=== PATIENT | male | born 1945 | race Caucasian/White ===

== ENCOUNTER 2018-03-19 10:33 | Observation (INO) | payer OTHER ==
[~2018-03-19] VITALS: Ht 182.9 cm; Wt 88.5 kg
[2018-03-19 10:38] VITALS: BP 160/73; PULSE 67; RESP 20; O2SAT 94
[2018-03-19] MEDS ORDERED: SODIUM CHLOR 0.9% 1000 ML INJ 1,000 ML IV ONE (10:45)
--- NOTE | 2018-03-19 10:51 | RADRPT ---
EXAM DATE: 03/19/2018 10:45 AM EDT AGE/SEX: 73 years / Male INDICATIONS: Difficulty speaking, history of brain tumor removed 4 months ago. CLINICAL DATA: This is the patient's initial encounter. Patient reports that signs and symptoms have been present for 1 day and indicates a pain score of 0/10. MEDICAL/SURGICAL HISTORY: None. Craniotomy. RADIATION DOSE: 66.34 CTDI (mGy) COMPARISON: No prior exams available for comparison. TECHNIQUE: CT of the head without contrast. Using automated exposure control and adjustment of the mA and/or kV according to patient size, radiation dose was kept as low as reasonably achievable to ob tain optimal diagnostic quality images. DICOM format image data is available electronically for revi ew and comparison. FINDINGS: Cerebrum: The ventricles are normal for age. Mild bilateral cortical atrophy characteristic for peggy ent's age. Chronic bilateral white matter changes. No evidence of midline shift, mass lesion, hemorrh age or acute infarction. No extraaxial fluid collections are seen. Postsurgical changes with some pa renchymal calcifications are noted along the posterior mid to upper left parietal lobe consistent wit h patient's prior history of brain surgery. Posterior Fossa: The cerebellum and brainstem are intact. The 4th ventricle is midline. The cerebe llopontine angle is unremarkable. Extracranial: The visualized portion of the orbits is intact. Skull: Craniotomy flap in good position along the posterior left parietal lobe. The calvarium is yasmeen ssly intact. CONCLUSION: 1. No focal or acute intracranial hemorrhage. 2. Status post evidence of previous brain surgery with postsurgical changes involving the posterior mid to upper left parietal lobe. 3. Bilateral cortical atrophy and white matter changes characteristic for patient's age. Electronically signed by: Eric Delgadillo MD 03/19/2018 10:50 AM EDT
[2018-03-19 10:56] VITALS: RESP 20; O2SAT 93; O2SAT 94
[2018-03-19 11:01] VITALS: BP 124/70; PULSE 57; RESP 20; O2SAT 98
[2018-03-19 11:04] LABS: AUTOMATED NEUTROPHIL # 2.7 TH/MM3 (1.8-7.7); BASOPHIL # 0.1 TH/MM3 (0-0.2); BASOPHIL % 1.1 % (0.0-2.0); EOSINOPHIL # 0.4 TH/MM3 (0-0.4); EOSINOPHIL % 7.1 % (0.0-4.0); HEMATOCRIT 43.1 % (39.0-51.0); HEMOGLOBIN 14.1 GM/DL (13.0-17.0); LYMPH % 33.3 % (9.0-44.0); LYMPHOCYTE # 1.9 TH/MM3 (1.0-4.8); MEAN CELL VOLUME 89.7 FL (80.0-100.0); MEAN CORPUSCULAR HEMOGLOBIN 29.3 PG (27.0-34.0); MEAN CORPUSCULAR HGB CONC 32.7 % (32.0-36.0); MEAN PLATELET VOLUME 7.6 FL (7.0-11.0); MONO % 10.2 % (0.0-8.0); MONOCYTE # 0.6 TH/MM3 (0-0.9); NEUT % 48.3 % (16.0-70.0); PLATELET COUNT 227 TH/MM3 (150-450); RED BLOOD COUNT 4.81 MIL/MM3 (4.50-5.90); RED CELL DISTRIBUTION WIDTH 15.3 % (11.6-17.2); WHITE BLOOD COUNT 5.6 TH/MM3 (4.0-11.0)
--- NOTE | 2018-03-19 11:07 | PD ---
HPI Chief Complaint: Altered mental status Time Seen by Provider: 10:36 Travel History International Travel<30 days: No Contact w/Intl Traveler<30days: No Traveled to known affect area: No History of Present Illness HPI 73-year-old male presents by ambulance as a stroke alert. He had about a 15 minute onset of speech abnormality. Patient here is having no speech issues and states that he is feeling better. He states he does recall having issues earlier with his speech. He has never been to our hospital before and is a poor historian and is by himself so ambulance helps supplement history. PFSH Past Medical History Cardiovascular Problems: Yes Diminished Hearing: No Hypertension: Yes Neurologic: Yes (brain tumor) Tetanus Vaccination: > 5 Years Influenza Vaccination: Yes Past Surgical History Neurologic Surgery: Yes (brain tumor sx) Social History Alcohol Use: No Tobacco Use: No Substance Use: No Allergies-Medications (Allergen,Severity, Reaction): Coded Allergies: No Known Allergies (Verified Allergy, Unknown, 03/19/18) Reported Meds & Prescriptions Reported Meds & Active Scripts Active Reported Megestrol Liq (Megestrol Acetate) 40 Mg/Ml Susp 400 Mg PO DAILY Meclizine (Meclizine HCl) 12.5 Mg Tab 12.5 Mg PO BID PRN Metoprolol Tartrate 25 Mg Tab 25 Mg PO Q8HR Cymbalta DR (Duloxetine HCl) 60 Mg Capdr 60 Mg PO DAILY Review of Systems ROS Limitations: Poor Historian Physical Exam Exam Limitations: Poor Historian Narrative GENERAL: 73-year-old male in no apparent distress SKIN: Focused skin assessment warm/dry. HEAD: Atraumatic. Normocephalic. EYES: Pupils equal and round. No scleral icterus. No injection or drainage. ENT: No nasal bleeding or discharge. Mucous membranes pink and moist. NECK: Trachea midline. CARDIOVASCULAR: Regular rate and rhythm. No murmur appreciated. RESPIRATORY: No accessory muscle use. Clear to auscultation. Breath sounds equal bilaterally. GASTROINTESTINAL: Abdomen soft, non-tender, nondistended. MUSCULOSKELETAL: No obvious deformities. No clubbing. No cyanosis. NEUROLOGICAL: Awake and alert. No obvious cranial nerve deficits. Motor grossly within normal limits. Normal speech Data Data Last Documented VS Vital Signs Date Time Temp Pulse Resp B/P (MAP) Pulse Ox O2 Delivery O2 Flow Rate FiO2 03/19/18 11:01 57 20 124/70 (88) 98 Nasal Cannula 2.00 Orders Orders Magnesium (Mg) (03/19/18 10:36) Phosphorus (Po4) (03/19/18 10:36) Complete Blood Count With Diff (03/19/18 10:36) Comprehensive Metabolic Panel (03/19/18 10:36) Ckmb (Isoenzyme) Profile (03/19/18 10:36) Troponin I (03/19/18 10:36) Urinalysis - C+S If Indicated (03/19/18 10:36) Act Partial Throm Time (Ptt) (03/19/18 10:36) Prothrombin Time / Inr (Pt) (03/19/18 10:36) Ct Brain W/O Iv Contrast(Rout) (03/19/18 ) Chest, Single Ap (03/19/18 ) Electrocardiogram (03/19/18 ) Iv Access Insert/Monitor (03/19/18 10:36) Ecg Monitoring (03/19/18 10:36) Oximetry (03/19/18 10:36) Type And Screen (03/19/18 10:36) Activity Bed Rest (03/19/18 ) Nursing Bedside Swallow Assess .ONCE (03/19/18 10:45) Sodium Chlor 0.9% 1000 Ml Inj (Ns 1000 M (03/19/18 10:45) Aspirin (Aspirin) (03/19/18 11:30) Consult Neurology (03/19/18 ) (Hub Use Only)Inp Phy Cons/Ref (03/19/18 ) Admit Order (Ed Use Only) (03/19/18 12:38) Labs Laboratory Tests Test 03/19/18 10:50 White Blood Count 5.6 TH/MM3 Red Blood Count 4.81 MIL/MM3 Hemoglobin 14.1 GM/DL Hematocrit 43.1 % Mean Corpuscular Volume 89.7 FL Mean Corpuscular Hemoglobin 29.3 PG Mean Corpuscular Hemoglobin Concent 32.7 % Red Cell Distribution Width 15.3 % Platelet Count 227 TH/MM3 Mean Platelet Volume 7.6 FL Neutrophils (%) (Auto) 48.3 % Lymphocytes (%) (Auto) 33.3 % Monocytes (%) (Auto) 10.2 % Eosinophils (%) (Auto) 7.1 % Basophils (%) (Auto) 1.1 % Neutrophils # (Auto) 2.7 TH/MM3 Lymphocytes # (Auto) 1.9 TH/MM3 Monocytes # (Auto) 0.6 TH/MM3 Eosinophils # (Auto) 0.4 TH/MM3 Basophils # (Auto) 0.1 TH/MM3 CBC Comment DIFF FINAL Differential Comment Prothrombin Time 10.5 SEC Prothromb Time International Ratio 1.0 RATIO Activated Partial Thromboplast Time 25.3 SEC Blood Urea Nitrogen 14 MG/DL Creatinine 0.85 MG/DL Random Glucose 91 MG/DL Total Protein 6.3 GM/DL Albumin 3.2 GM/DL Calcium Level 8.5 MG/DL Phosphorus Level 3.0 MG/DL Magnesium Level 2.1 MG/DL Alkaline Phosphatase 101 U/L Aspartate Amino Transf (AST/SGOT) 13 U/L Alanine Aminotransferase (ALT/SGPT) 12 U/L Total Bilirubin 0.5 MG/DL Sodium Level 144 MEQ/L Potassium Level 4.0 MEQ/L Chloride Level 112 MEQ/L Carbon Dioxide Level 21.3 MEQ/L Anion Gap 11 MEQ/L Estimat Glomerular Filtration Rate 88 ML/MIN Total Creatine Kinase 72 U/L Troponin I LESS THAN 0.02 NG/ML MDM Medical Decision Making Medical Screen Exam Complete: Yes Emergency Medical Condition: Yes Medical Record Reviewed: Yes (No records here) Interpretation(s) Last [address] 03/19/18 0000 Signed Impressions: CONCLUSION: 1. No focal or acute intracranial hemorrhage. 2. Status post evidence of previous brain surgery with postsurgical changes in volving the posterior mid to upper left parietal lobe. 3. Bilateral cortical atrophy and white matter changes characteristic for peggy ent's age. CBC & BMP Diagram 03/19/18 10:50 CBC & BMP Diagram 03/19/18 10:50 Total Protein 6.3 L, Albumin 3.2 L, Calcium Level 8.5, Phosphorus Level 3.0, Magnesium Level 2.1, Alkaline Phosphatase 101, Aspartate Amino Transf (AST/SGOT ) 13 L, Alanine Aminotransferase (ALT/SGPT) 12, Total Bilirubin 0.5 Differential Diagnosis Bleed, seizure, electrolyte, TIA Narrative Course Will check blood work, imaging and discuss with neurology ed workup no emergent process on labs, ct head, will admit for further care, at bedside and updated history Physician Communication Physician Communication dr gamble agrees to hold stroke alert at this time given no active symptoms. He request aspirin, IV fluids and will monitor dr garcia agrees to admit Diagnosis Primary Impression: Altered mental status Qualified Codes: R41.82 - Altered mental status, unspecified Admitting Information Admitting Physician Requests: Observation Jessica Calixto MD Mar 19, 2018 11:07
[2018-03-19 11:14] LABS: PROTHROMBIN TIME - PATIENT 10.5 SEC (9.8-11.6)
[2018-03-19 11:29] LABS: ALBUMIN 3.2 GM/DL (3.4-5.0); ALT (GPT) 12 U/L (12-78); AST (GOT) 13 U/L (15-37); BICARBONATE 21.3 MEQ/L (21.0-32.0); BLOOD UREA NITROGEN 14 MG/DL (7-18); CALCIUM 8.5 MG/DL (8.5-10.1); CHLORIDE 112 MEQ/L (98-107); CREATININE 0.85 MG/DL (0.60-1.30); GLOMERULAR FILTRATION RATE 88 ML/MIN (>89); GLUCOSE,RANDOM 91 MG/DL (74-106); MAGNESIUM 2.1 MG/DL (1.5-2.5); SODIUM (NA) 144 MEQ/L (136-145)
[2018-03-19] MEDS ORDERED: ASPIRIN 325 MG TAB PO ONE (11:30)
[2018-03-19 11:33] LABS: ALKALINE PHOSPHATASE 101 U/L (45-117); TOTAL BILIRUBIN ADULT 0.5 MG/DL (0.2-1.0); TOTAL PROTEIN 6.3 GM/DL (6.4-8.2); TROPONIN I LESS THAN 0.02 NG/ML (0.02-0.05)
--- NOTE | 2018-03-19 11:43 | RADRPT ---
EXAM DATE: 03/19/2018 11:19 AM EDT AGE/SEX: 73 years / Male INDICATIONS: Possible stroke, slurred speech. CLINICAL DATA: This is the patient's initial encounter. Patient reports that signs and symptoms have been present for 1 day and indicates a pain score of 0/10. MEDICAL/SURGICAL HISTORY: . brain tumor 10/2017, right side weakness . brain tumor surgery 10/20 17 COMPARISON: No prior exams available for comparison. FINDINGS: A single AP view of the chest demonstrates the lungs to be symmetrically aerated without evidence of mass, infiltrate or effusion. The cardiomediastinal contours are unremarkable. Osseous structures a re intact. CONCLUSION: No acute intrathoracic disease. Electronically signed by: Eric Delgadillo MD 03/19/2018 11:42 AM EDT
[2018-03-19] MEDS ORDERED: MECL12.574 PO (11:49)
[2018-03-19] MEDS ORDERED: CYMB60CA PO (11:49)
[2018-03-19] MEDS ORDERED: MEGE40SU PO (11:49)
[2018-03-19] MEDS ORDERED: METO25TA3 PO (11:49)
[2018-03-19] MEDS ORDERED: DEXTROSE 50% IN WATER 50 ML VIAL(D50) IV PUSH PRN (12:45)
[2018-03-19] MEDS ORDERED: GLUCAGON 1 MG/ML VIAL OTHER PRN (12:45)
[2018-03-19] MEDS ORDERED: SODIUM CHLORIDE 0.9% FLUSH 10 ML FLUSH IV FLUSH PRN (12:45)
[2018-03-19 13:00] VITALS: BP 146/70; PULSE 56; RESP 17; TEMP 97.8; O2SAT 98
[2018-03-19 13:52] VITALS: BP 136/70; TEMP 97.8
[2018-03-19] MEDS ORDERED: LORazepam 2 MG/ML VIAL IV PUSH ONE (14:00)
[2018-03-19] MEDS: METOPROLOL TARTRATE 25 MG TAB PO SCH ×2 (14:00→22:00)
[2018-03-19] MEDS: HEPARIN SODIUM - SQ 10,000 UNITS/ML VIAL SQ SCH (14:42)
--- NOTE | 2018-03-19 14:42 | HHI.HP ---
HPI Service [facility] Primary Care Physician Unknown Admission Diagnosis altered mental status, expressive aphasia episode Diagnoses: Travel History International Travel<30 Days: No Contact w/Intl Traveler <30 Da: No Traveled to Known Affected Are: No History of Present Illness 73-year-old male with a history of left-sided brain mass removed 1 year ago, depression, hypertension who presents with acute onset dysarthria this morning around 9 AM. This resolves shortly thereafter. Patient denies any new focal signs or symptoms during this time apart from difficulty speaking. Patient does have residual right-sided weakness which is unchanged.. Patient says he is currently feeling back to normal. Denies any chest pain, shortness of breath, nausea, vomiting. Denies any recent fevers, chills, dysuria, diarrhea, constipation. Review of Systems Except as stated in HPI: all other systems reviewed are Neg Past Family Social History Past Medical History Hypertension Depression not on medication. Previous brain tumor which was removed 1 year ago. Residual right-sided weakness Chronic bilateral lower extremity neuropathy. Past Surgical History Brain tumor removed 1 year ago. Tonsillectomy Reported Medications Reported Meds & Active Scripts Active Reported Megestrol Liq (Megestrol Acetate) 40 Mg/Ml Susp 400 Mg PO DAILY Meclizine (Meclizine HCl) 12.5 Mg Tab 12.5 Mg PO BID PRN Metoprolol Tartrate 25 Mg Tab 25 Mg PO Q8HR Cymbalta DR (Duloxetine HCl) 60 Mg Capdr 60 Mg PO DAILY Allergies: Coded Allergies: No Known Allergies (Verified Allergy, Unknown, 03/19/18) Family History Reviewed with patient and found to be currently noncontributory Social History Non-smoker. Nondrinker. Denies illicit drugs. Physical Exam Vital Signs Vital Signs Date Time Temp Pulse Resp B/P (MAP) Pulse Ox O2 Delivery O2 Flow Rate FiO2 03/19/18 13:52 97.8 53 16 136/70 (92) 99 03/19/18 13:00 97.8 56 17 146/70 (95) 98 Nasal Cannula 2.00 03/19/18 11:01 57 20 124/70 (88) 98 Nasal Cannula 2.00 03/19/18 10:56 20 94 Nasal Cannula 2.00 03/19/18 10:56 56 18 98 Nasal Cannula 2.00 03/19/18 10:38 67 20 160/73 (102) 94 Physical Exam GENERAL: This is a well-nourished, well-developed patient, in no apparent distress. Alert, oriented 3. SKIN: No rashes, ecchymoses or lesions. Cool and dry. HEAD: Atraumatic. Normocephalic. No temporal or scalp tenderness. EYES: Pupils equal round and reactive. Extraocular motions intact. No scleral icterus. No injection or drainage. ENT: Nose without bleeding, purulent drainage or septal hematoma. Throat without erythema, tonsillar hypertrophy or exudate. Uvula midline. Airway patent. NECK: Trachea midline. No JVD or lymphadenopathy. Supple, nontender, no meningeal signs. CARDIOVASCULAR: Regular rate and rhythm without murmurs, gallops, or rubs. RESPIRATORY: Clear to auscultation. Breath sounds equal bilaterally. No wheezes , rales, or rhonchi. GASTROINTESTINAL: Abdomen soft, non-tender, nondistended. No hepato-splenomegaly , or palpable masses. No guarding. MUSCULOSKELETAL: Extremities without clubbing, cyanosis, or edema. No joint tenderness, effusion, or edema noted. No calf tenderness. Negative Homans sign bilaterally. NEUROLOGICAL: Awake and alert. Cranial nerves II through XII intact. Motor and sensory grossly within normal limits. Some slight weakness on the right, however overall strength is 5 out of 5 bilateral upper and lower extremities. Normal speech. Laboratory Laboratory Tests Test 03/19/18 10:50 White Blood Count 5.6 Red Blood Count 4.81 Hemoglobin 14.1 Hematocrit 43.1 Mean Corpuscular Volume 89.7 Mean Corpuscular Hemoglobin 29.3 Mean Corpuscular Hemoglobin Concent 32.7 Red Cell Distribution Width 15.3 Platelet Count 227 Mean Platelet Volume 7.6 Neutrophils (%) (Auto) 48.3 Lymphocytes (%) (Auto) 33.3 Monocytes (%) (Auto) 10.2 Eosinophils (%) (Auto) 7.1 Basophils (%) (Auto) 1.1 Neutrophils # (Auto) 2.7 Lymphocytes # (Auto) 1.9 Monocytes # (Auto) 0.6 Eosinophils # (Auto) 0.4 Basophils # (Auto) 0.1 CBC Comment DIFF FINAL Differential Comment Prothrombin Time 10.5 Prothromb Time International Ratio 1.0 Activated Partial Thromboplast Time 25.3 Blood Urea Nitrogen 14 Creatinine 0.85 Random Glucose 91 Total Protein 6.3 Albumin 3.2 Calcium Level 8.5 Phosphorus Level 3.0 Magnesium Level 2.1 Alkaline Phosphatase 101 Aspartate Amino Transf (AST/SGOT) 13 Alanine Aminotransferase (ALT/SGPT) 12 Total Bilirubin 0.5 Sodium Level 144 Potassium Level 4.0 Chloride Level 112 Carbon Dioxide Level 21.3 Anion Gap 11 Estimat Glomerular Filtration Rate 88 Total Creatine Kinase 72 Troponin I LESS THAN 0.02 Result Diagram: 03/19/18 1050 03/19/18 1050 Imaging Last Impressions Head CT 03/19/18 0000 Signed Impressions: CONCLUSION: 1. No focal or acute intracranial hemorrhage. 2. Status post evidence of previous brain surgery with postsurgical changes in volving the posterior mid to upper left parietal lobe. 3. Bilateral cortical atrophy and white matter changes characteristic for peggy ent's age. Chest X-Ray 03/19/18 0000 Signed Impressions: CONCLUSION: No acute intrathoracic disease. Caprini VTE Risk Assessment Caprini VTE Risk Assessment: Mod/High Risk (score >= 2) Caprini Risk Assessment Model Point Value = 1 Point Value = 2 Point Value = 3 Point Value = 5 Age 41-60 Minor surgery BMI > 25 kg/m2 Swollen legs Varicose veins or History of unexplained or recurrent spontaneous Oral contraceptives or hormone replacement Sepsis (< 1 month) Serious lung disease, including pneumonia (< 1 month) Abnormal pulmonary function Acute myocardial infarction Congestive heart failure (< 1 month) History of inflammatory bowel disease Medical patient at bed rest Age 61-74 Arthroscopic surgery Major open surgery (> 45 min) Laparoscopic surgery (> 45 min) Malignancy Confined to bed (> 72 hours) Immobilizing plaster cast Central venous access Age >= 75 History of VTE Family history of VTE Factor V Leiden Prothrombin [id number] Lupus anticoagulant Anticardiolipin antibodies Elevated serum homocysteine Heparin-induced thrombocytopenia Other congenital or acquired thrombophilia Stroke (< 1 month) Elective arthroplasty Hip, pelvis, or leg fracture Acute spinal cord injury (< 1 month) Prophylaxis Regimen Total Risk Factor Score Risk Level Prophylaxis Regimen 0-1 Low Early ambulation 2 Moderate Order ONE of the following: *Sequential Compression Device (SCD) *Heparin 5000 units SQ BID 3-4 Higher Order ONE of the following medications: *Heparin 5000 units SQ TID *Enoxaparin/Lovenox 40 mg SQ daily (WT < 150 kg, CrCl > 30 mL/min) *Enoxaparin/Lovenox 30 mg SQ daily (WT < 150 kg, CrCl > 10-29 mL/min) *Enoxaparin/Lovenox 30 mg SQ BID (WT < 150 kg, CrCl > 30 mL/min) AND/OR *Sequential Compression Device (SCD) 5 or more Highest Order ONE of the following medications: *Heparin 5000 units SQ TID (Preferred with Epidurals) *Enoxaparin/Lovenox 40 mg SQ daily (WT < 150 kg, CrCl > 30 mL/min) *Enoxaparin/Lovenox 30 mg SQ daily (WT < 150 kg, CrCl > 10-29 mL/min) *Enoxaparin/Lovenox 30 mg SQ BID (WT < 150 kg, CrCl > 30 mL/min) AND *Sequential Compression Device (SCD) Assessment and Plan Assessment and Plan //suspected TIA //Possible seizure //History of left brain mass removed with residual right-sided weakness. -CT brain with no acute findings. = Further imaging ordered and pending. Echocardiogram ordered and pending. Ultrasound carotids. //Right lower extremity swelling. Acute on chronic //Possible bilateral lower extremity venous insufficiency -We will check ultrasound. Patient may need ALIYAH hose. //Hypertension. Chronic. Continue home medications. //Depression. Chronic. No suicidal ideations. Not on medication. //Bilateral lower extremity neuropathy. Chronic. On medication at home. to bring in medication list. //Malnutrition. Chronic. Poor appetite. On Megace. Continue. Discussed Condition With Patient, nurse, ED physician, at bedside Isma Whitehead MD Mar 19, 2018 14:42
--- NOTE | 2018-03-19 16:23 | PD.CONS ---
History of Present Illness Service Neurology Consult Requested By ER difficulty with speech Primary Care Physician Unknown History of Present Illness 73-year-old male with a history of left-sided brain mass removed 1 year ago, depression, hypertension who presents with acute onset dysarthria this morning around 9 AM. Symptoms resolved by time he came to the emergency department. A CAT scan did not show any acute lesion. MRI brain scan performed official report pending no acute stroke noted. Left high posterior parietal mass lesion/ scar tissue noted. Patient states he has had difficulty with speech ever since he had brain surgery. States he is in speech therapy this morning and is having more difficulty putting his words together. States his back to his new baseline. Denies any headache neck pain focal weakness visual loss or vertigo. No history of TIA or stroke. Not on any antiplatelets. States he had surgery done in [place]. Is followed by a neurologist in the outpatient setting. Review of Systems Except as stated in HPI: all other systems reviewed are Neg Past Family Social History Past Medical History Hypertension Depression Previous brain tumor resection over a year ago Chronic bilateral lower extremity neuropathy Past Surgical History Brain tumor resection left posterior hemisphere. Tonsillectomy Allergies: Coded Allergies: No Known Allergies (Verified Allergy, Unknown, 03/19/18) Family History Reviewed with patient and found to be currently noncontributory Social History Non-smoker. Nondrinker. Denies illicit drugs. Review of Systems All other ROS: ROS reviewed as documented in chart Past Family Social History Allergies: Coded Allergies: No Known Allergies (Verified Allergy, Unknown, 03/19/18) Active Ordered Medications Current Medications Medications (Trade) Dose Ordered Sig/Walter Route Start Time Stop Time Status Last Admin Sodium Chloride 1,000 ml @ 70 mls/hr [id number] ONCE IV 03/19/18 10:45 03/20/18 01:02 03/19/18 10:56 (NS Flush) 2 ml BID IV FLUSH 03/19/18 21:00 (NS Flush) 2 ml UNSCH PRN IV FLUSH 03/19/18 12:45 (Aspirin Chew) 81 mg DAILY PO 03/20/18 09:00 (NovoLOG SUPPLEMENTAL SCALE) 1 ACHS SQ 03/19/18 17:00 (D50w (Vial) Inj) 50 ml UNSCH PRN IV PUSH 03/19/18 12:45 (Glucagon Inj) 1 mg UNSCH PRN OTHER 03/19/18 12:45 (Heparin Inj) 5,000 units Q12H SQ 03/19/18 14:00 03/19/18 14:42 (Cymbalta Dr) 60 mg DAILY PO 03/20/18 09:00 (Megace Liq) 400 mg DAILY PO 03/20/18 09:00 (Lopressor) 25 mg Q8HR PO 03/19/18 14:00 Exam I&O / VS Vital Signs Date Time Temp Pulse Resp B/P (MAP) Pulse Ox O2 Delivery O2 Flow Rate FiO2 03/19/18 13:52 97.8 53 16 136/70 (92) 99 03/19/18 13:00 97.8 56 17 146/70 (95) 98 Nasal Cannula 2.00 03/19/18 11:01 57 20 124/70 (88) 98 Nasal Cannula 2.00 03/19/18 10:56 20 94 Nasal Cannula 2.00 03/19/18 10:56 56 18 98 Nasal Cannula 2.00 03/19/18 10:38 67 20 160/73 (102) 94 General: Alert and Oriented, No acute distress Eye: EOMI Respiratory: Non-labored respirations Neurologic: Alert Psychiatric: Cooperative, Appropriate mood & affect Exam Comments Awake alert mild disfluency oriented 3 some poor short-term memory recollection to some details and states need to talk to his who is not at bedside at present states it has been this way since his brain surgery. No temporal tenderness OU 3-2 mm extraocular once intact no facial asymmetry tongue midline strength 5 out of 5 upper lower limbs slightly reduced fine finger movements in the right hand. No dystaxia. Reduce pinprick stocking distribution in his legs. Reflexes 1+ symmetric plantarflex response no clonus elicited. Gait not assessed secondary fall risk. Review/Management Diagnosis/Plan: (1) Transient neurologic deficit ICD Codes: R29.818 - Other symptoms and signs involving the nervous system Status: Acute Plan: Etiology; TIA versus partial seizure secondary to brain tumor/scarring Acute on chronic disfluency with improvement over the course a day Recommendations Follow up official MRI report, MRA Carotid, echo Aspirin, Plavix We will also start Keppra for potential focal seizure in the area of encephalomalacia Fasting lipids EEG PT eval No driving (2) Brain tumor ICD Codes: D49.6 - Neoplasm of unspecified behavior of brain Status: Chronic Plan: Follows with his outpatient neurologist for this (3) Depression ICD Codes: F32.9 - Major depressive disorder, single episode, unspecified Status: Chronic Plan: Watch mood Has been on Cymbalta (4) HTN (hypertension) ICD Codes: I10 - Essential (primary) hypertension Status: Chronic Plan: Goal less than 120/80 Medical following Problem Qualifiers (1) HTN (hypertension): Qualified Codes: I10 - Essential (primary) hypertension Edgar Wu MD Mar 19, 2018 16:23
--- NOTE | 2018-03-19 16:26 | RADRPT ---
EXAM DATE: 03/19/2018 4:15 PM EDT AGE/SEX: 73 years / Male INDICATIONS: Stroke. Slurred speech for one day. CLINICAL DATA: This is the patient's initial encounter. Patient reports that signs and symptoms have been present for 1 day and indicates a pain score of 8/10. MEDICAL/SURGICAL HISTORY: Hypertension. . Brain sx. COMPARISON: [facility] – [place], [place], CT BRAIN W/O CONTRAST, 03/19/2018. . TECHNIQUE: Multiplanar, multisequence examination of the brain was performed without contrast. FINDINGS: Cerebrum: There is mild generalized atrophy with ventricular size within normal limits given the degr ee of atrophy. In the left parietal high convexity there is encephalomalacia with focal signal change corresponding with the calcification seen on CT. There is mild increased diffusion signal in this ar ea without associated decreased ADC signal. There is also focal susceptibility artifact in this area. No midline shift, mass lesion, hemorrhage or acute infarction. No extraaxial fluid collections are seen. The pituitary gland and suprasellar cistern are normal in configuration. White Matter: There is mild periventricular and subcortical white matter signal change. Posterior Fossa: The cerebellum and brainstem demonstrate no acute abnormality. The 4th ventricle is midline. The cerebellopontine angle is within normal limits. The cerebellar tonsils are normal in p osition. Diffusion Imaging: No areas of restricted diffusion are seen. Extracranial: The visualized sinuses are clear. There are postsurgical changes in the left parietal skull. CONCLUSION: 1. No acute finding is identified to explain the clinical symptoms. There are no findings to indicat e recent ischemia. 2. Postsurgical changes in the left parietal region with encephalomalacia. 3. Chronic findings include generalized atrophy and chronic periventricular white matter change ramon acteristic of chronic microvascular ischemia. Electronically signed by: Luis Rosales MD 03/19/2018 4:25 PM EDT
--- NOTE | 2018-03-19 16:41 | RADRPT ---
EXAM DATE: 03/19/2018 4:12 PM EDT AGE/SEX: 73 years / Male INDICATIONS: TIA. Slurred speech for one day. CLINICAL DATA: This is the patient's initial encounter. Patient reports that signs and symptoms have been present for 1 day and indicates a pain score of 7/10. MEDICAL/SURGICAL HISTORY: Hypertension. . Brain sx. [place] [facility] [place]/19/2018. . TECHNIQUE: 3D [id number] MRA was performed. Source images, multiplanar STS MIP, and 3D volum e MIP reconstructions were reviewed. FINDINGS: There is excellent visualization of the major intracranial arteries out to the second-order branch ve ssels. There is no evidence for vessel truncation or stenosis, and no evidence for vascular malforma tion. However, there appears to be a questionable 3 mm aneurysm involving the tip of the basilar little ry. There are bilateral patent posterior communicating arteries. CONCLUSION: 1. 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 If clinically indicated, [place] mm[place] a CTA of the brain for further evaluation. 2. Otherwise, the rest of the MRA of the brain is unremarkable. Electronically signed by: Eric Delgadillo MD 03/19/2018 4:39 PM EDT
[2018-03-19] MEDS: INSULIN ASPART SUPPLEMENTAL SCALE SQ SCH ×2 (17:00→21:00)
[2018-03-19 17:53] LABS: HEMOGLOBIN A1C 5.3 % (4.3-6.0)
[2018-03-19] MEDS: levETIRAcetam 500 MG TAB PO SCH (19:01)
[2018-03-19] MEDS: CLOPIDOGREL 75 MG TAB PO SCH (19:01)
[2018-03-19 20:48] VITALS: BP 120/70; PULSE 57; RESP 17; TEMP 97.2; O2SAT 97
[2018-03-19] MEDS: SODIUM CHLORIDE 0.9% FLUSH 10 ML FLUSH IV FLUSH SCH (21:00)
--- NOTE | 2018-03-19 22:39 | RADRPT ---
EXAM DATE: 03/19/2018 10:34 PM EDT AGE/SEX: 73 years / Male INDICATIONS: Edema. CLINICAL DATA: This is the patient's initial encounter. Patient reports that signs and symptoms have been present for 1 day and indicates a pain score of Nonresponsive. MEDICAL/SURGICAL HISTORY: Hypertension. . Brain tumor removed 1 year ago. COMPARISON: No prior exams available for comparison. TECHNIQUE: Venous ultrasound of both lower extremities was performed from the inguinal ligament to t he proximal calf. Real-time, color Doppler and spectral tracing, compression and augmentation techni ques were used. FINDINGS: Right Leg: Normal compression of the deep venous system from the inguinal region to the proximal miguelina f. No echogenic clot is seen. Normal response of the venous system to augmentation and respiration. Left Leg: Normal compression of the deep venous system from the inguinal region to the proximal calf . No echogenic clot is seen. Normal response of the venous system to augmentation and respiration. Other: None. CONCLUSION: 1. No sonographic evidence for lower extremity DVT. Electronically signed by: Percy Jhaveri MD 03/19/2018 10:38 PM EDT
--- NOTE | 2018-03-19 22:40 | RADRPT ---
EXAM DATE: 03/19/2018 10:30 PM EDT AGE/SEX: 73 years / Male INDICATIONS: Slurred speech. CLINICAL DATA: This is the patient's initial encounter. Patient reports that signs and symptoms have been present for 1 day and indicates a pain score of Nonresponsive. MEDICAL/SURGICAL HISTORY: Hypertension. . Neurologic brain tumor surgery. COMPARISON: No prior exams available for comparison. VELOCITY PARAMETERS: ICA/CCA Ratio: Right 0.96 , Left 0.94 ICA: Right 70 cm/sec, Left 95 cm/sec CCA: Right 75 cm/sec, Left 101 cm/sec ECA: Right 63 cm/sec, Left 77 cm/sec Vertebral: Right 24 cm/sec antegrade, Left 38 cm/sec antegrade FINDINGS: Right Carotid: No significant stenosis is visualized. The waveforms are within normal limits. Left Carotid: No significant stenosis is visualized. The waveforms are within normal limits. Other: None. CONCLUSION: 1. Right Internal Carotid Artery: No significant stenosis or atherosclerotic plaque is visualized. 2. Left Internal Carotid Artery: No significant stenosis or atherosclerotic plaque is visualized. Electronically signed by: Percy Jhaveri MD 03/19/2018 10:38 PM EDT
[2018-03-20] VITALS (7 sets, daily range): BP systolic 116–131; BP diastolic 68–73; PULSE 52–57; RESP 16–18; TEMP 97.5–98.9; O2SAT 95–97
[2018-03-20] MEDS: HEPARIN SODIUM - SQ 10,000 UNITS/ML VIAL SQ SCH ×2 (03:43→14:00)
[2018-03-20 05:29] LABS: CHOLESTEROL/ HDL RATIO 4.27 RATIO; HDL CHOLESTEROL 42.3 MG/DL (40.0-60.0)
[2018-03-20] MEDS: METOPROLOL TARTRATE 25 MG TAB PO SCH ×2 (05:53→14:00)
[2018-03-20] MEDS: levETIRAcetam 500 MG TAB PO SCH (06:04)
[2018-03-20] MEDS: INSULIN ASPART SUPPLEMENTAL SCALE SQ SCH ×2 (08:00→12:00)
[2018-03-20] MEDS ORDERED: ASPIRIN 325 MG TAB PO SCH (09:00)
[2018-03-20] MEDS ORDERED: DULoxetine HCl DR 60 MG CAP PO SCH (09:00)
[2018-03-20] MEDS ORDERED: MEGESTROL ACETATE SUSP 400 MG/10 ML CUP PO SCH (09:00)
[2018-03-20] MEDS ORDERED: ASPIRIN 81 MG CHEW TAB PO SCH (09:00)
--- NOTE | 2018-03-20 09:03 | HHI.PR ---
Review/Management Diagnosis/Plan: (1) Transient neurologic deficit ICD Codes: R29.818 - Other symptoms and signs involving the nervous system Status: Acute Plan: Etiology; TIA versus partial seizure secondary to brain tumor/scarring Acute on chronic disfluency with improvement over the course a day Recommendations Neuro stable MRA suggesting questionable 3 mm aneurysm which is not clinically significant or relevant consider repeat imaging in the future Carotid, echo; carotid stenosis significant vaso-occlusive disease, echo report pending Aspirin, Plavix Keppra for potential focal seizure in the area of encephalomalacia Fasting lipids EEG; pending PT eval She also get a repeat MRI brain follow-up with his cancer doctor in a few weeks Can be discharged today from neurologic standpoint followed up in the outpatient setting and 2-3 weeks No driving (2) Brain tumor ICD Codes: D49.6 - Neoplasm of unspecified behavior of brain Status: Chronic Plan: Follows with his outpatient neurologist for this (3) Depression ICD Codes: F32.9 - Major depressive disorder, single episode, unspecified Status: Chronic Plan: Watch mood Has been on Cymbalta (4) HTN (hypertension) ICD Codes: I10 - Essential (primary) hypertension Status: Chronic Plan: Goal less than 120/80 Medical following Subjective Subjective Comments No acute events reported No headache No chest pain No dyspnea Active Medications Current Medications Medications (Trade) Dose Ordered Sig/Walter Route Start Time Stop Time Status Last Admin (NS Flush) 2 ml BID IV FLUSH 03/19/18 21:00 (NS Flush) 2 ml UNSCH PRN IV FLUSH 03/19/18 12:45 (NovoLOG SUPPLEMENTAL SCALE) 1 ACHS SQ 03/19/18 17:00 (D50w (Vial) Inj) 50 ml UNSCH PRN IV PUSH 03/19/18 12:45 (Glucagon Inj) 1 mg UNSCH PRN OTHER 03/19/18 12:45 (Heparin Inj) 5,000 units Q12H SQ 03/19/18 14:00 03/20/18 03:43 (Cymbalta Dr) 60 mg DAILY PO 03/20/18 09:00 (Megace Liq) 400 mg DAILY PO 03/20/18 09:00 (Lopressor) 25 mg Q8HR PO 03/19/18 14:00 (Aspirin) 325 mg DAILY PO 03/20/18 09:00 (Plavix) 75 mg DAILY PO 03/19/18 16:30 03/19/18 19:01 (Keppra) 500 mg Q12H PO 03/19/18 18:00 03/20/18 06:04 Allergies Allergies Coded Allergies No Known Allergies (Verified Allergy, Unknown, 03/19/18) Review of Systems All other ROS: ROS reviewed as documented in chart Exam I&O / VS Vital Signs Date Time Temp Pulse Resp B/P (MAP) Pulse Ox O2 Delivery O2 Flow Rate FiO2 03/20/18 07:47 97.6 55 18 116/68 (84) 95 03/20/18 03:54 52 03/20/18 03:44 98.2 54 18 131/73 (92) 97 03/20/18 00:27 97.5 52 16 117/69 (85) 96 03/19/18 20:48 97.2 57 17 120/70 (87) 97 03/19/18 13:52 97.8 53 16 136/70 (92) 99 03/19/18 13:00 97.8 56 17 146/70 (95) 98 Nasal Cannula 2.00 03/19/18 11:01 57 20 124/70 (88) 98 Nasal Cannula 2.00 03/19/18 10:56 20 94 Nasal Cannula 2.00 03/19/18 10:56 56 18 98 Nasal Cannula 2.00 03/19/18 10:38 67 20 160/73 (102) 94 General: Alert and Oriented, No acute distress Eye: EOMI Respiratory: Non-labored respirations Neurologic: Alert Psychiatric: Cooperative, Appropriate mood & affect Exam Comments Awake alert mild disfluency oriented 3, having EEG performed, OU 3-2 mm extraocular once intact no facial asymmetry tongue midline strength 5 out of 5 upper lower limbs slightly reduced fine finger movements in the right hand. No dystaxia. Reduce pinprick stocking distribution in his legs. Reflexes 1+ symmetric plantarflex response no clonus elicited. Gait not assessed secondary fall risk. Objective Micro and Labs Laboratory Tests Test 03/19/18 10:50 03/20/18 04:48 White Blood Count 5.6 Red Blood Count 4.81 Hemoglobin 14.1 Hematocrit 43.1 Mean Corpuscular Volume 89.7 Mean Corpuscular Hemoglobin 29.3 Mean Corpuscular Hemoglobin Concent 32.7 Red Cell Distribution Width 15.3 Platelet Count 227 Mean Platelet Volume 7.6 Neutrophils (%) (Auto) 48.3 Lymphocytes (%) (Auto) 33.3 Monocytes (%) (Auto) 10.2 Eosinophils (%) (Auto) 7.1 Basophils (%) (Auto) 1.1 Neutrophils # (Auto) 2.7 Lymphocytes # (Auto) 1.9 Monocytes # (Auto) 0.6 Eosinophils # (Auto) 0.4 Basophils # (Auto) 0.1 CBC Comment DIFF FINAL Differential Comment Prothrombin Time 10.5 Prothromb Time International Ratio 1.0 Activated Partial Thromboplast Time 25.3 Blood Urea Nitrogen 14 Creatinine 0.85 Random Glucose 91 Total Protein 6.3 Albumin 3.2 Calcium Level 8.5 Phosphorus Level 3.0 Magnesium Level 2.1 Alkaline Phosphatase 101 Aspartate Amino Transf (AST/SGOT) 13 Alanine Aminotransferase (ALT/SGPT) 12 Total Bilirubin 0.5 Sodium Level 144 Potassium Level 4.0 Chloride Level 112 Carbon Dioxide Level 21.3 Anion Gap 11 Estimat Glomerular Filtration Rate 88 Hemoglobin A1c 5.3 Total Creatine Kinase 72 Troponin I LESS THAN 0.02 Triglycerides Level 65 Cholesterol Level 181 LDL Cholesterol 126 HDL Cholesterol 42.3 Cholesterol/HDL Ratio 4.27 Problem Qualifiers (1) HTN (hypertension): Qualified Codes: I10 - Essential (primary) hypertension Edgar Wu MD Mar 20, 2018 09:03
[2018-03-20] MEDS ORDERED: PLAV75TA29 PO (10:39)
[2018-03-20] MEDS ORDERED: LEVE500 PO (10:39)
--- NOTE | 2018-03-20 10:39 | HHI.DCPOC ---
Discharge Care Plan Diagnosis: (1) Dysarthria (2) Transient neurologic deficit Additional Problems proceed with outpatient speech therapy Goals to Promote Your Health * To prevent worsening of your condition and complications * To maintain your health at the optimal level Directions to Meet Your Goals Take your medications as prescribed Follow your dietary instruction Follow activity as directed Keep your appointments as scheduled Take your immunizations and boosters as scheduled If your symptoms worsen call your PCP, if no PCP go to Urgent Care Center or Emergency Room Smoking is Dangerous to Your Health. Avoid second hand smoke Call the 24-hour hour crisis hotline for domestic abuse at Yung Franz MD Mar 20, 2018 10:39
[2018-03-20] MEDS: SODIUM CHLORIDE 0.9% FLUSH 10 ML FLUSH IV FLUSH SCH (10:57)
[2018-03-20] MEDS: CLOPIDOGREL 75 MG TAB PO SCH (10:57)
--- NOTE | 2018-03-20 14:07 | EKG ---
Date Performed: 03/19/2018 Time Performed: 10:55:56 PTAGE: 73 years EKG: SINUS BRADYCARDIA POSSIBLE RIGHT VENTRICULAR CONDUCTION DELAY NONSPECIFIC T-WAVE ABNORMALIT Y ABNORMAL ECG NO PREVIOUS TRACING DOCTOR: William Collazo Interpretating Date/Time 03/20/2018 14:07:02
[2018-03-20] MEDS ORDERED: ATOR40TA16 PO (14:27)
--- NOTE | 2018-03-20 14:29 | HHI.PR ---
Subjective Remarks Nursing denies any deterioration since last night. Patient maintaining good appetite while in hospital. Patient himself wanting to go home. Objective Vital Signs Date Time Temp Pulse Resp B/P (MAP) Pulse Ox O2 Delivery O2 Flow Rate FiO2 03/20/18 12:26 98.9 57 18 121/68 (85) 96 03/20/18 07:47 97.6 55 18 116/68 (84) 95 03/20/18 03:54 52 03/20/18 03:44 98.2 54 18 131/73 (92) 97 03/20/18 00:27 97.5 52 16 117/69 (85) 96 03/19/18 20:48 97.2 57 17 120/70 (87) 97 I/O 03/19/18 03/19/18 03/19/18 03/20/18 03/20/18 03/20/18 07:00 15:00 23:00 07:00 15:00 23:00 Output Total 400 ml Balance -400 ml Output Urine Total 400 ml # Voids 1 Result Diagram: 03/19/18 1050 03/19/18 1050 Objective Remarks No facial droop, no slurred speech, alert and oriented 3 Unlabored breathing, clear lungs bilaterally A/P Assessment and Plan Dysarthria now resolved. Simple transient ischemic attack. EEG performed and results are pending. Brain MRI is negative for any new insults. Clear to discharge from neurology standpoint. Patient will be at least on Plavix daily if not on aspirin additionally as well. I will place the patient on atorvastatin as well. Patient has been informed to not drive operating heavy machinery or swim until cleared by neurology. Patient has met maximal benefit from hospitalization and is clinically stable for discharge. Patient gave verbal permission to discuss issues with his , explained findings to over the phone. Explained to her that patient will need home health which has been ordered. Yung Franz MD Mar 20, 2018 14:29
--- NOTE | 2018-03-20 15:41 | ECHRPT ---
Indication: CVA/TIA CONCLUSIONS The left ventricular systolic function is normal with an estimated ejection fraction in the range of 60-65%. Normal left ventricular size. Wall thickness is normal. No regional wall motion abnormalities are present. Diffuse calcification of the aortic valve. There is trace tricuspid valve regurgitation. The estimated pulmonary arterial pressure is 36 mmHg. BP: / HR: Rhythm: Sinus MEASUREMENTS (Male / Female) Normal Values Technical Quality:Poor 2D ECHO LV Diastolic Diameter PLAX 4.4 cm 4.2 - 5.9 / 3.9 - 5.3 cm LV Systolic Diameter PLAX 3.2 cm IVS Diastolic Thickness 1.1 cm 0.6 - 1.0 / 0.6 - 0.9 cm LVPW Diastolic Thickness 1.1 cm 0.6 - 1.0 / 0.6 - 0.9 cm LV Relative Wall Thickness 0.5 LVOT Diameter 2.0 cm LA Systolic Diameter LX 3.7 cm 3.0 - 4.0 / 2.7 - 3.8 cm LV Ejection Fraction MOD 4C 63.5 % LV Ejection Fraction 4C AL 65.0 % M-MODE Aortic Root Diameter MM 3.5 cm AV Cusp Separation MM 1.7 cm DOPPLER AV Peak Velocity 211.0 cm/s AV Peak Gradient 17.8 mmHg AV Mean Gradient 9.0 mmHg AV Velocity Time Integral 45.4 cm LVOT Peak Velocity 97.0 cm/s LVOT Peak Gradient 3.8 mmHg LVOT Velocity Time Integral 19.7 cm AV Area Cont Eq vti 1.4 cm AV Area Cont Eq pk 1.4 cm MV Area PHT 3.8 cm Mitral E Point Velocity 75.5 cm/s Mitral A Point Velocity 80.0 cm/s Mitral E to A Ratio 0.9 LV E' Lateral Velocity 10.5 cm/s Mitral E to LV E' Lateral Ratio 7.2 LV E' Septal Velocity 7.4 cm/s Mitral E to LV E' Septal Ratio 10.2 TR Peak Velocity 255.0 cm/s TR Peak Gradient 26.0 mmHg Right Atrial Pressure 10.0 mmHg Pulmonary Artery Systolic Pressu 36.0 mmHg Right Ventricular Systolic Press 36.0 mmHg PV Peak Velocity 106.0 cm/s PV Peak Gradient 4.5 mmHg FINDINGS LEFT VENTRICLE The left ventricular systolic function is normal with an estimated ejection fraction in the range of 60-65%. Normal left ventricular size. Wall thickness is normal. No regional wall motion abnormalities are present. RIGHT VENTRICLE Normal right ventricular size and systolic function. LEFT ATRIUM The left atrial size is normal. RIGHT ATRIUM The right atrial size is normal. ATRIAL SEPTUM Normal atrial septal thickness without atrial level shunting by limited color doppler interrogation. AORTA The aortic root and proximal ascending aorta are normal in size on limited imaging. MITRAL VALVE Structurally normal mitral valve. No mitral valve stenosis or regurgitation. AORTIC VALVE Trileaflet aortic valve. Diffuse calcification of the aortic valve. TRICUSPID VALVE Structurally normal tricuspid valve. There is trace tricuspid valve regurgitation. The estimated pulmonary arterial pressure is 36 mmHg. PULMONARY VALVE No pulmonary valve regurgitation or stenosis. VESSELS The inferior vena cava is normal in size. PERICARDIUM No pericardial effusion. Erik Castellanos MD, FACC (Electronically Signed) Final Date:20 March 2018 15:40
--- NOTE | 2018-03-20 15:41 | HHI.FF ---
Face to Face Verification Diagnosis: (1) Dysarthria (2) Transient neurologic deficit Occupational Therapy Order: Evaluate and Treat Speech Therapy Order: To Improve: Cognitive skills I have seen patient Luis Stanford on 03/20/18. My clinical findings support the need for the requested home health care services because: Impaired cognition/judgement I certify that my clinical findings support that this patient is homebound because: Unsafe to leave home unassisted Need for psychosocial assistance Yung Franz MD Mar 20, 2018 15:41
[2018-03-20] MEDS ORDERED: ASPI81TA23 PO (15:42)
--- NOTE | 2018-03-20 17:36 | MG ---
cc: Randall Roberts MD, PhD DATE OF STUDY: 03/20/2018 EEG TEST NUMBER: [id number] TECHNIQUE: A 17-channel EEG. DESCRIPTION: The background rhythm shows a symmetrical alpha rhythm, frequency of 8-10 Hz, amplitude is 20-30 microvolts. No epileptiform discharges are present. There are no lateralizing features identified. There is some muscle artifact present. Photic stimulation was performed in a stepwise fashion with a normal driving response. INTERPRETATION: Normal electroencephalogram. Randall Roberts MD, PhD JACKELYN/SB , 04:43 PM , 04:52 PM
--- NOTE | 2018-03-21 19:43 | HM ---
Date Performed: 03/19/2018 Time Performed: 18:43:00 HOOKUP DATE: 03/19/18 06:43:00 PM Tue ANALYSIS START TIME: 03/19/2018 6:48:00 PM ANALYSIS END TIME: 03/20/2018 3:41:00 PM PATIENT AGE: 73 PATIENT HEIGHT PATIENT WEIGHT DRUG LIST: ROOM F67 PATIENT DIAGNOSIS: POSSIBLE STROKE TEST NARRATIVE: The patient's average heart rate was 57 BPM. No episodes of tachycardia wer e noted. Heart rates less than 50 BPM were noted 22% of the time. No pauses exceeding 2.0 second s were noted. 122 ventricular ectopics, which represented < 1% of the total beat count, were note d. The highest ventricular ectopic frequency occurred from 11:00 AM to 12:00 PM Wed. During this ti me 15 VE(s) occurred. Ventricular ectopics were observed as 122 isolated beat(s) only. No couplets or runs were noted. 35 supraventricular ectopics, which represented < 1% of the total beat count, were noted. The highest supraventricular ectopic frequency occurred from 08:00 AM to 09:00 AM Wed. During this time 5 SVE(s) occurred. No episodes of ST depression (defined as -1.0 mm or more) we re noted in channel 1. No episodes of ST depression (defined as -1.0 mm or more) were noted in chann el 2. No episodes of ST depression (defined as -1.0 mm or more) were noted in channel 3. NO DIARY EN TRIES WERE RECORDED BY THE PATIENT. TEST INTERPRETATION: The predominant rythm is Sinus .There were no significant ventricular runs or atrial firillation appreciated. No cardiac complaints were recorded Normal Holter monitor. Signed by : Reta Saini
== END 2018-03-20 16:07 | disposition home or self-care (01) ==
LOC: NEPE 10:33 → NEDA 12:40 → NEPFCDU 14:53
PROVIDERS: ADMIT Hospitalist; ATTEND Hospitalist
DX: R47.1 Dysarthria and anarthria (principal); R53.1 Weakness; M79.89 Other specified soft tissue disorders; R41.82 Altered mental status, unspecified; E46 Unspecified protein-calorie malnutrition; R29.818 Other symptoms and signs involving the nervous system; I10 Essential (primary) hypertension; G57.93 Unspecified mononeuropathy of bilateral lower limbs; G93.89 Other specified disorders of brain; F32.9 Major depressive disorder, single episode, unspecified; Z79.899 Other long term (current) drug therapy
CPT/HCPCS: 70450; 70544; 70551; 71045; 80053; 80061; 82550; 82948; 83036; 83735; 84100; 84484; 85025; 85610; 85730; 86850; 86900; 86901; 93005; 93225; 93226; 93306; 93880; 93970; 95819; 96125; 96361; 96372; 96374; 97162; 97167; 99285; G0378; G8987; G8988; G9168; G9169; J1644; J2060; J7030